=== PATIENT | female | born 1955 | race Caucasian/White ===

== ENCOUNTER 2022-03-18 11:57 | Inpatient (IN) ==
[2022-03-18] MEDS ORDERED: Ipratropium/Albuterol Neb 3 ML IH ONE (12:16)
[2022-03-18 12:19] LABS: Basophils % 0.3 %; Eosinophils % 0.2 %; Hematocrit 49.3 % (35.3-44.9); Hemoglobin 16.9 g/dL (11.5-15.4); Immature Granulocytes % 0.2 % (0-4); Lymphocytes # 1.9 K/mcL (0.6-4.6); Lymphocytes % 13.4 %; Mean Corpuscular HGB Conc 34.3 g/dL (31.6-35.5); Mean Corpuscular Hemoglobin 30.9 pg (28.0-33.3); Mean Corpuscular Volume 90.1 fL (83.0-100.0); Mean Platelet Volume 9.9 fL (9.4-12.4); Monocytes # 1.1 K/mcL (0.0-1.3); Monocytes % 8.1 %; Platelet Count 220 K/mcL (140-400); Red Blood Count 5.47 M/mcL (3.82-4.97); Red Cell Distribution Width 13.2 % (11.5-14.5); Segmented Neutrophils % 77.8 %; White Blood Count 14.1 K/mcL (4.3-11.1)
[2022-03-18 12:41] LABS: Alanine Aminotransferase 12 Units/L (7-52); Albumin 4.1 g/dL (3.5-5.7); Albumin/Globulin Ratio 1.1 (1.1-2.2); Alkaline Phosphatase 105 Units/L (34-104); Aspartate Amino Transferase 20 Units/L (13-39); BUN/Creatinine Ratio 13 (6-26); Bilirubin,Total 0.8 mg/dL (0.3-1.0); Blood Urea Nitrogen 9 mg/dL (8-23); Calcium 9.8 mg/dL (8.6-10.3); Carbon Dioxide 25 mEq/L (23-29); Chloride 109 mEq/L (98-107); Creatine Kinase 229 Units/L (30-223); Globulin 3.7 g/dL (2.4-3.5); Glucose 112 mg/dL (70-105); Osmolality,Calculated 299 (280-300); Potassium 3.9 mEq/L (3.5-5.1); Sodium 145 mEq/L (136-145); Total Protein 7.8 g/dL (6.4-8.9); Troponin I < 0.03 ng/mL (< 0.04); eGFR For African Americans > 60 (> 60); eGFR For Non-African Americans > 60 (> 60)
[2022-03-18] MEDS ORDERED: Ringers Solution, Lactated 1,000 ML IVC SCH (16:45)
[2022-03-18] MEDS ORDERED: Perflutren Lipid Microsphere 1.3 ML in 0.9 % Sodium Chloride 8.7 ML IVP PRN (18:18)
[2022-03-18] MEDS ORDERED: Acetaminophen 325 MG TABLET PO PRN (18:19)
[2022-03-18] MEDS ORDERED: Naloxone 0.4 MG/ML INJ IVP PRN (18:25)
[2022-03-18] MEDS ORDERED: Ondansetron 4 MG/2 ML VIAL IVP PRN (18:25)
[2022-03-18] MEDS ORDERED: Nicotine 14 MG PATCH.TD24 TD PRN (18:42)
[2022-03-18] MEDS: *HR* HYDROcodone/Acet 5/325 mg TABLET PO PRN (19:05)
[2022-03-18] MEDS: Budesonide/Formoterol 160/4.5 1 PUFF INH IH SCH (19:59)
[2022-03-18] MEDS ORDERED: Ipratropium/Albuterol Neb 3 ML IH SCH (20:00)
[2022-03-18] MEDS: Ipratropium/Albuterol Neb 3 ML IH PRN (20:02)
[2022-03-19] MEDS ORDERED: *HR* Metoprolol 5 MG/5 ML VIAL IVP ONE (02:36)
[2022-03-19] MEDS: *HR* HYDROcodone/Acet 5/325 mg TABLET PO PRN (03:11)
[2022-03-19 03:37] LABS: Basophils % 0.2 %; Eosinophils # 0.1 K/mcL (0.0-0.6); Eosinophils % 0.5 %; Hematocrit 43.3 % (35.3-44.9); Immature Granulocytes % 0.3 % (0-4); Lymphocytes # 2.2 K/mcL (0.6-4.6); Lymphocytes % 21.5 %; Mean Corpuscular HGB Conc 33.5 g/dL (31.6-35.5); Mean Corpuscular Hemoglobin 30.9 pg (28.0-33.3); Mean Corpuscular Volume 92.1 fL (83.0-100.0); Monocytes # 0.9 K/mcL (0.0-1.3); Monocytes % 8.8 %; Neutrophils # 6.9 K/mcL (1.6-8.9); Platelet Count 190 K/mcL (140-400); Red Cell Distribution Width 13.2 % (11.5-14.5); Segmented Neutrophils % 68.7 %; White Blood Count 10.1 K/mcL (4.3-11.1)
[2022-03-19 03:48] LABS: Hemoglobin 14.5 g/dL (11.5-15.4)
[2022-03-19 03:49] LABS: Prealbumin 6.9 mg/dL (17.0-34.0)
[2022-03-19 03:58] LABS: % Iron Saturation 11 % (15-50); BUN/Creatinine Ratio 13 (6-26); Blood Urea Nitrogen 8 mg/dL (8-23); Calcium 9.2 mg/dL (8.6-10.3); Carbon Dioxide 22 mEq/L (23-29); Chloride 108 mEq/L (98-107); Glucose 88 mg/dL (70-105); Iron 22 mcg/dL (50-170); Osmolality,Calculated 296 (280-300); Potassium 3.2 mEq/L (3.5-5.1); Sodium 144 mEq/L (136-145); Transferrin 148 mg/dL (203-362); eGFR For African Americans > 60 (> 60); eGFR For Non-African Americans > 60 (> 60)
[2022-03-19 04:03] LABS: Thyroid Stimulating Hormone 1.119 mcIU/mL (0.340-5.600)
[2022-03-19] MEDS ORDERED: Tiotropium 10 INH DOSE IH ONE (07:29)
[2022-03-19] MEDS: Budesonide/Formoterol 160/4.5 1 PUFF INH IH SCH ×2 (07:33→19:51)
[2022-03-19] MEDS: Tiotropium 10 INH DOSE IH SCH (07:36)
[2022-03-19] MEDS: Cholecalciferol (D-3) 1,000 UNIT (25MCG) TABLET PO SCH (09:23)
[2022-03-19] MEDS: Multivit/Ca/Min/Fe/FA 1 TAB TABLET PO SCH (09:24)
[2022-03-19] MEDS: Gabapentin 300 MG CAPSULE PO SCH ×3 (09:24→23:22)
[2022-03-19] MEDS: Thiamine (B-1) 200 MG/2 ML VIAL IM SCH (09:25)
[2022-03-19] MEDS ORDERED: Iopamidol - 370 500 ML MLS IVP ONE (10:00)
[2022-03-19] MEDS ORDERED: Gadolinium Contrast Agent (WT Based) IV PRN (10:17)
[2022-03-19] MEDS: cloNIDine HCL 0.1 MG TABLET PO SCH (10:45)
[2022-03-19] MEDS: Pantoprazole 40 MG VIAL IVP SCH (10:53)
[2022-03-19] MEDS ORDERED: GADOBUTROL 30 MMOL/30 ML VIAL IVP ONE (11:23)
[2022-03-19 14:54] LABS: INR 1.2; Prothrombin Time 13.9 Seconds (9.4-12.1)
[2022-03-20] MEDS: *HR* HYDROcodone/Acet 5/325 mg TABLET PO PRN (00:01)
[2022-03-20 05:37] LABS: BUN/Creatinine Ratio 16 (6-26); Blood Urea Nitrogen 10 mg/dL (8-23); Calcium 9.3 mg/dL (8.6-10.3); Carbon Dioxide 24 mEq/L (23-29); Chloride 113 mEq/L (98-107); Glucose 139 mg/dL (70-105); Osmolality,Calculated 303 (280-300); Potassium 4.1 mEq/L (3.5-5.1); Sodium 146 mEq/L (136-145); eGFR For African Americans > 60 (> 60); eGFR For Non-African Americans > 60 (> 60)
[2022-03-20] MEDS ORDERED: Lidocaine HCL 4 ML Topical Solution (Laryng-O-Jet Kit Sterile Pak) TP ONE (08:44)
[2022-03-20] MEDS ORDERED: Ondansetron 4 MG/2 ML VIAL ONE (08:44)
[2022-03-20] MEDS ORDERED: Lidocaine -MPF 2% 2 ML VIAL ONE (08:44)
[2022-03-20] MEDS ORDERED: *HR* Rocuronium Bromide 50 MG/5 ML VIAL ONE (08:44)
[2022-03-20] MEDS ORDERED: *HR* Propofol 200 MG/20 ML VIAL IVP ONE (08:44)
[2022-03-20] MEDS ORDERED: *HR* Succinylcholine 200 MG/10 ML VIAL IVP ONE (08:44)
[2022-03-20] MEDS ORDERED: *HR* FentaNYL (PF) 100 MCG/2 ML VIAL ONE (08:49)
[2022-03-20] MEDS ORDERED: EPHEDrine 50 MG/ML VIAL ONE (09:49)
[2022-03-20] MEDS: Tiotropium 10 INH DOSE IH SCH (10:08)
[2022-03-20] MEDS ORDERED: *HR* EPINEPHrine 1 MG/10 ML SYRINGE INTRATRACH PRN (10:08)
[2022-03-20] MEDS: Budesonide/Formoterol 160/4.5 1 PUFF INH IH SCH ×2 (10:08→22:15)
[2022-03-20] MEDS ORDERED: Acetaminophen IV 1,000 MG/100 ML BAG IVPB PRN (10:30)
[2022-03-20] MEDS ORDERED: *HR* Meperidine 25 MG/ML SYRINGE IVP PRN (10:30)
[2022-03-20] MEDS ORDERED: *HR* Labetalol 20 MG/4 ML SYRINGE IVP PRN (10:30)
[2022-03-20] MEDS ORDERED: Naloxone 0.4 MG/ML INJ IVP PRN (10:30)
[2022-03-20] MEDS ORDERED: Albuterol 2.5 MG/3 ML NEBULIZER IH PRN (10:30)
[2022-03-20] MEDS ORDERED: Ondansetron 4 MG/2 ML VIAL IVP PRN (10:30)
[2022-03-20] MEDS ORDERED: Ipratropium Neb 0.5 MG NEBULIZER IH PRN (10:30)
[2022-03-20] MEDS ORDERED: Racepinephrine Neb 0.5 ML VIAL IH PRN (10:30)
[2022-03-20] MEDS ORDERED: *HR* FentaNYL (PF) 100 MCG/2 ML VIAL IVP PRN (10:30)
[2022-03-20] MEDS ORDERED: flumazeniL 0.5 MG/5 ML VIAL IVP PRN (10:30)
[2022-03-20] MEDS ORDERED: Albuterol 2.5 MG/3 ML NEBULIZER ONE (10:38)
[2022-03-20] MEDS: Gabapentin 300 MG CAPSULE PO SCH ×3 (12:21→23:50)
[2022-03-20] MEDS: cloNIDine HCL 0.1 MG TABLET PO SCH (12:21)
[2022-03-20] MEDS: Multivit/Ca/Min/Fe/FA 1 TAB TABLET PO SCH (12:21)
[2022-03-20] MEDS: Cholecalciferol (D-3) 1,000 UNIT (25MCG) TABLET PO SCH (12:22)
[2022-03-20] MEDS: Pantoprazole 40 MG VIAL IVP SCH (12:22)
[2022-03-20] MEDS: Thiamine (B-1) 200 MG/2 ML VIAL IM SCH (12:59)
[2022-03-21] MEDS ORDERED: *HR* Metoprolol 5 MG/5 ML VIAL IVP ONE (04:30)
[2022-03-21 06:29] LABS: BUN/Creatinine Ratio 14 (6-26); Blood Urea Nitrogen 9 mg/dL (8-23); Calcium 9.3 mg/dL (8.6-10.3); Carbon Dioxide 28 mEq/L (23-29); Chloride 110 mEq/L (98-107); Glucose 143 mg/dL (70-105); Osmolality,Calculated 303 (280-300); Potassium 3.7 mEq/L (3.5-5.1); Sodium 146 mEq/L (136-145); eGFR For African Americans > 60 (> 60); eGFR For Non-African Americans > 60 (> 60)
[2022-03-21] MEDS: Tiotropium 10 INH DOSE IH SCH (07:14)
[2022-03-21] MEDS: Budesonide/Formoterol 160/4.5 1 PUFF INH IH SCH ×2 (07:14→21:49)
[2022-03-21] MEDS: Pantoprazole 40 MG VIAL IVP SCH (11:01)
[2022-03-21] MEDS: Gabapentin 300 MG CAPSULE PO SCH ×3 (11:01→22:56)
[2022-03-21] MEDS: cloNIDine HCL 0.1 MG TABLET PO SCH (11:01)
[2022-03-21] MEDS: Multivit/Ca/Min/Fe/FA 1 TAB TABLET PO SCH (11:02)
[2022-03-21] MEDS: Cholecalciferol (D-3) 1,000 UNIT (25MCG) TABLET PO SCH (11:02)
[2022-03-21] MEDS: Thiamine (B-1) 100 MG TABLET PO SCH (11:02)
[2022-03-21 23:17] LABS: Bilirubin,Urine Negative (Negative); Blood,Urine Negative (Negative); Clarity,Urine Clear (Clear); Color,Urine Light-Yellow (Yellow); Glucose,Urine (UA) Normal (Normal); Ketones,Urine Negative (Negative); Leukocyte Esterase,Urine Negative (Negative); Nitrite,Urine Negative (Negative); PH,Urine 6.5 pH Units (5.0-8.0); Protein,Urine Negative (Neg-Trace); Specific Gravity,Urine 1.007 (1.010-1.025); Urobilinogen,Urine Normal (Normal)
[2022-03-22] MEDS: Tiotropium 10 INH DOSE IH SCH (07:58)
[2022-03-22] MEDS: Budesonide/Formoterol 160/4.5 1 PUFF INH IH SCH ×2 (07:58→21:43)
[2022-03-22] MEDS: Pantoprazole 40 MG VIAL IVP SCH (09:30)
[2022-03-22] MEDS: cloNIDine HCL 0.1 MG TABLET PO SCH (09:40)
[2022-03-22] MEDS: Gabapentin 300 MG CAPSULE PO SCH ×2 (09:40→15:42)
[2022-03-22] MEDS: Multivit/Ca/Min/Fe/FA 1 TAB TABLET PO SCH (09:41)
[2022-03-22] MEDS: Thiamine (B-1) 100 MG TABLET PO SCH (09:41)
[2022-03-22] MEDS: Cholecalciferol (D-3) 1,000 UNIT (25MCG) TABLET PO SCH (09:41)
[2022-03-22] MEDS: Ipratropium/Albuterol Neb 3 ML IH PRN (20:25)
[2022-03-23] MEDS: Gabapentin 300 MG CAPSULE PO SCH ×3 (00:09→16:28)
[2022-03-23 07:04] LABS: Basophils % 0.3 %; Eosinophils % 0.1 %; Mean Corpuscular Hemoglobin 30.3 pg (28.0-33.3); Monocytes % 5.1 %
[2022-03-23 07:06] LABS: Hematocrit 41.8 % (35.3-44.9); Hemoglobin 13.6 g/dL (11.5-15.4); Immature Granulocytes % 1.6 % (0-4); Immature Platelets 10.2 % (1.1-6.1); Lymphocytes # 1.3 K/mcL (0.6-4.6); Lymphocytes % 11.8 %; Mean Corpuscular HGB Conc 32.5 g/dL (31.6-35.5); Mean Corpuscular Volume 93.1 fL (83.0-100.0); Mean Platelet Volume 12.2 fL (9.4-12.4); Monocytes # 0.6 K/mcL (0.0-1.3); Neutrophils # 9.2 K/mcL (1.6-8.9); Platelet Count 176 K/mcL (140-400); Red Blood Count 4.49 M/mcL (3.82-4.97); Red Cell Distribution Width 13.4 % (11.5-14.5); Segmented Neutrophils % 81.1 %; White Blood Count 11.3 K/mcL (4.3-11.1)
[2022-03-23 07:56] LABS: Platelet Estimate Normal (Normal)
[2022-03-23 08:02] LABS: BUN/Creatinine Ratio 25 (6-26); Blood Urea Nitrogen 16 mg/dL (8-23); Carbon Dioxide 26 mEq/L (23-29); Chloride 108 mEq/L (98-107); Glucose 123 mg/dL (70-105); Osmolality,Calculated 301 (280-300); Potassium 3.8 mEq/L (3.5-5.1); Sodium 144 mEq/L (136-145); eGFR For African Americans > 60 (> 60); eGFR For Non-African Americans > 60 (> 60)
[2022-03-23] MEDS: Pantoprazole 40 MG VIAL IVP SCH (09:16)
[2022-03-23] MEDS: Thiamine (B-1) 100 MG TABLET PO SCH (09:17)
[2022-03-23] MEDS: Multivit/Ca/Min/Fe/FA 1 TAB TABLET PO SCH (09:17)
[2022-03-23] MEDS: Cholecalciferol (D-3) 1,000 UNIT (25MCG) TABLET PO SCH (09:17)
[2022-03-23] MEDS: cloNIDine HCL 0.1 MG TABLET PO SCH (09:30)
[2022-03-23] MEDS: Tiotropium 10 INH DOSE IH SCH (10:15)
[2022-03-23] MEDS: Budesonide/Formoterol 160/4.5 1 PUFF INH IH SCH ×2 (10:15→19:50)
[2022-03-23] MEDS: Ciprofloxacin HCL Soln 5 ML BOTTLE RIGHT EYE SCH ×3 (11:10→19:47)
[2022-03-23] MEDS: Ciprofloxacin HCL Soln 5 ML BOTTLE LEFT EYE SCH ×3 (11:10→19:46)
[2022-03-23] MEDS: 0.9 % Sodium Chloride 1,000 ML IVC SCH (13:00)
[2022-03-23] MEDS: Sennosides/Docusate Sodium TABLET PO SCH (21:53)
[2022-03-23] MEDS: *HR* HYDROcodone/Acet 10/325 mg TABLET PO PRN (21:53)
[2022-03-24] MEDS: Ciprofloxacin HCL Soln 5 ML BOTTLE LEFT EYE SCH ×7 (00:03→23:46)
[2022-03-24] MEDS: Ciprofloxacin HCL Soln 5 ML BOTTLE RIGHT EYE SCH ×7 (00:03→23:46)
[2022-03-24] MEDS: Gabapentin 300 MG CAPSULE PO SCH ×4 (00:03→23:46)
[2022-03-24] MEDS: 0.9 % Sodium Chloride 1,000 ML IVC SCH ×2 (01:57→09:59)
[2022-03-24] MEDS: Tiotropium 10 INH DOSE IH SCH (07:59)
[2022-03-24] MEDS: Budesonide/Formoterol 160/4.5 1 PUFF INH IH SCH ×2 (08:00→20:11)
[2022-03-24] MEDS: Pantoprazole 40 MG VIAL IVP SCH (08:56)
[2022-03-24] MEDS: cloNIDine HCL 0.1 MG TABLET PO SCH (08:56)
[2022-03-24] MEDS: Multivit/Ca/Min/Fe/FA 1 TAB TABLET PO SCH (08:57)
[2022-03-24] MEDS: Thiamine (B-1) 100 MG TABLET PO SCH (08:57)
[2022-03-24] MEDS: Cholecalciferol (D-3) 1,000 UNIT (25MCG) TABLET PO SCH (08:57)
[2022-03-24] MEDS: Sennosides/Docusate Sodium TABLET PO SCH ×2 (09:01→21:07)
[2022-03-24] MEDS: Ipratropium/Albuterol Neb 3 ML IH SCH ×2 (15:44→20:11)
[2022-03-25] MEDS: Ipratropium/Albuterol Neb 3 ML IH SCH ×3 (00:15→07:59)
[2022-03-25] MEDS: 0.9 % Sodium Chloride 1,000 ML IVC SCH (00:24)
[2022-03-25] MEDS: Ciprofloxacin HCL Soln 5 ML BOTTLE LEFT EYE SCH ×6 (03:53→23:37)
[2022-03-25] MEDS: Ciprofloxacin HCL Soln 5 ML BOTTLE RIGHT EYE SCH ×6 (03:53→23:38)
[2022-03-25] MEDS: Budesonide/Formoterol 160/4.5 1 PUFF INH IH SCH ×2 (07:59→22:40)
[2022-03-25] MEDS: Tiotropium 10 INH DOSE IH SCH (08:01)
[2022-03-25] MEDS: Gabapentin 300 MG CAPSULE PO SCH ×3 (08:54→23:38)
[2022-03-25] MEDS: cloNIDine HCL 0.1 MG TABLET PO SCH (08:54)
[2022-03-25] MEDS ORDERED: 0.9 % Sodium Chloride 1,000 ML IVC ONE (09:10)
[2022-03-25] MEDS: Thiamine (B-1) 100 MG TABLET PO SCH (09:17)
[2022-03-25] MEDS: Multivit/Ca/Min/Fe/FA 1 TAB TABLET PO SCH (09:17)
[2022-03-25] MEDS: Cholecalciferol (D-3) 1,000 UNIT (25MCG) TABLET PO SCH (09:17)
[2022-03-25] MEDS: Sennosides/Docusate Sodium TABLET PO SCH ×2 (09:18→20:38)
[2022-03-25] MEDS: Pantoprazole 40 MG VIAL IVP SCH (09:19)
[2022-03-25] MEDS: Levalbuterol Neb 1.25 MG/3 ML IH SCH ×3 (11:13→22:22)
[2022-03-25] MEDS ORDERED: *HR* LORazepam 0.5 MG TABLET PO PRN (12:03)
[2022-03-25] MEDS: dexAMETHasone 4 MG TABLET PO SCH ×2 (14:06→20:39)
[2022-03-25] MEDS: polyethylene glycoL 3350 17 GM POWD.PACK PO SCH (16:40)
[2022-03-26] MEDS: Levalbuterol Neb 1.25 MG/3 ML IH SCH ×4 (04:12→20:25)
[2022-03-26] MEDS: Ciprofloxacin HCL Soln 5 ML BOTTLE LEFT EYE SCH ×5 (06:54→21:30)
[2022-03-26] MEDS: Ciprofloxacin HCL Soln 5 ML BOTTLE RIGHT EYE SCH ×5 (06:54→21:29)
[2022-03-26] MEDS: Thiamine (B-1) 100 MG TABLET PO SCH (08:55)
[2022-03-26] MEDS: Cholecalciferol (D-3) 1,000 UNIT (25MCG) TABLET PO SCH (08:55)
[2022-03-26] MEDS: Pantoprazole 40 MG VIAL IVP SCH (08:55)
[2022-03-26] MEDS: Gabapentin 300 MG CAPSULE PO SCH ×2 (08:55→16:43)
[2022-03-26] MEDS: Sennosides/Docusate Sodium TABLET PO SCH ×2 (08:55→21:31)
[2022-03-26] MEDS: Multivit/Ca/Min/Fe/FA 1 TAB TABLET PO SCH (08:55)
[2022-03-26] MEDS: dexAMETHasone 4 MG TABLET PO SCH ×3 (08:56→21:31)
[2022-03-26] MEDS: polyethylene glycoL 3350 17 GM POWD.PACK PO SCH (09:09)
[2022-03-26] MEDS: Budesonide/Formoterol 160/4.5 1 PUFF INH IH SCH ×2 (09:38→20:27)
[2022-03-26] MEDS: Tiotropium 10 INH DOSE IH SCH (09:39)
[2022-03-26] MEDS: *HR* HYDROcodone/Acet 5/325 mg TABLET PO PRN (21:31)
[2022-03-26] MEDS: Melatonin 3 MG TABLET PO PRN (21:32)
[2022-03-27] MEDS: Gabapentin 300 MG CAPSULE PO SCH ×4 (01:06→23:50)
[2022-03-27] MEDS: Ciprofloxacin HCL Soln 5 ML BOTTLE RIGHT EYE SCH ×7 (01:09→23:50)
[2022-03-27] MEDS: Ciprofloxacin HCL Soln 5 ML BOTTLE LEFT EYE SCH ×7 (01:10→23:50)
[2022-03-27 02:26] LABS: CK-BB (CK isoenzymes) 0 % (0-0); CK-MB (CK isoenzymes) 0 % (0-4); CK-MM (CK-isoenzymes) 100 % (96-100)
[2022-03-27] MEDS: Levalbuterol Neb 1.25 MG/3 ML IH SCH ×4 (02:51→21:17)
[2022-03-27] MEDS: polyethylene glycoL 3350 17 GM POWD.PACK PO SCH (07:01)
[2022-03-27] MEDS: dexAMETHasone 4 MG TABLET PO SCH ×3 (07:33→20:26)
[2022-03-27] MEDS: Multivit/Ca/Min/Fe/FA 1 TAB TABLET PO SCH (07:33)
[2022-03-27] MEDS: Sennosides/Docusate Sodium TABLET PO SCH ×2 (07:33→20:26)
[2022-03-27] MEDS: Pantoprazole 40 MG VIAL IVP SCH (07:33)
[2022-03-27] MEDS: Thiamine (B-1) 100 MG TABLET PO SCH (07:33)
[2022-03-27] MEDS: Cholecalciferol (D-3) 1,000 UNIT (25MCG) TABLET PO SCH (07:33)
[2022-03-27 08:42] LABS: Basophils # 0.1 K/mcL (0.0-0.2); Basophils % 0.5 %; Hematocrit 42.2 % (35.3-44.9); Hemoglobin 13.7 g/dL (11.5-15.4); Immature Granulocytes % 4.6 % (0-4); Lymphocytes # 1.9 K/mcL (0.6-4.6); Lymphocytes % 12.3 %; Mean Corpuscular HGB Conc 32.5 g/dL (31.6-35.5); Mean Corpuscular Hemoglobin 30.6 pg (28.0-33.3); Mean Corpuscular Volume 94.4 fL (83.0-100.0); Mean Platelet Volume 9.9 fL (9.4-12.4); Monocytes # 1.2 K/mcL (0.0-1.3); Monocytes % 7.7 %; Neutrophils # 11.4 K/mcL (1.6-8.9); Platelet Count 258 K/mcL (140-400); Red Blood Count 4.47 M/mcL (3.82-4.97); Red Cell Distribution Width 13.7 % (11.5-14.5); Segmented Neutrophils % 74.9 %; White Blood Count 15.2 K/mcL (4.3-11.1)
[2022-03-27 08:56] LABS: BUN/Creatinine Ratio 22 (6-26); Blood Urea Nitrogen 16 mg/dL (8-23); Calcium 8.6 mg/dL (8.6-10.3); Carbon Dioxide 35 mEq/L (23-29); Chloride 103 mEq/L (98-107); Glucose 110 mg/dL (70-105); Osmolality,Calculated 298 (280-300); Sodium 143 mEq/L (136-145); eGFR For African Americans > 60 (> 60); eGFR For Non-African Americans > 60 (> 60)
[2022-03-27] MEDS: Budesonide/Formoterol 160/4.5 1 PUFF INH IH SCH ×2 (10:14→21:18)
[2022-03-27] MEDS: Tiotropium 10 INH DOSE IH SCH (10:14)
[2022-03-27 10:17] LABS: CK Total (Ck Isoenzymes) 90 U/L (26-192)
[2022-03-27] MEDS: *HR* HYDROcodone/Acet 10/325 mg TABLET PO PRN (20:25)
[2022-03-27] MEDS: Melatonin 3 MG TABLET PO PRN (20:26)
[2022-03-28] MEDS: Levalbuterol Neb 1.25 MG/3 ML IH SCH ×2 (03:33→11:29)
[2022-03-28] MEDS: Ciprofloxacin HCL Soln 5 ML BOTTLE RIGHT EYE SCH ×3 (03:56→11:11)
[2022-03-28] MEDS: Ciprofloxacin HCL Soln 5 ML BOTTLE LEFT EYE SCH ×3 (03:56→11:11)
[2022-03-28] MEDS: Gabapentin 300 MG CAPSULE PO SCH (08:34)
[2022-03-28] MEDS: Cholecalciferol (D-3) 1,000 UNIT (25MCG) TABLET PO SCH (08:34)
[2022-03-28] MEDS: dexAMETHasone 4 MG TABLET PO SCH (08:34)
[2022-03-28] MEDS: Sennosides/Docusate Sodium TABLET PO SCH (08:34)
[2022-03-28] MEDS: Thiamine (B-1) 100 MG TABLET PO SCH (08:34)
[2022-03-28] MEDS: Multivit/Ca/Min/Fe/FA 1 TAB TABLET PO SCH (08:34)
[2022-03-28] MEDS: Pantoprazole 40 MG VIAL IVP SCH (08:35)
[2022-03-28] MEDS: polyethylene glycoL 3350 17 GM POWD.PACK PO SCH (08:35)
[2022-03-28 10:16] VITALS: BP 151/65; PULSE 60; TEMP 97.6; O2SAT 93
[2022-03-28] MEDS: Tiotropium 10 INH DOSE IH SCH (11:29)
[2022-03-28] MEDS: Budesonide/Formoterol 160/4.5 1 PUFF INH IH SCH (11:29)
[2022-03-28 12:20] LABS: Influenza A PCR Negative (Negative); Influenza B PCR Negative (Negative); Resp. Syncytial Virus PCR Negative (Negative)
[2022-03-28 12:24] LABS: SARS-CoV-2 by PCR (In House) Negative (Negative)
== END 2022-03-28 14:42 | DRG 136 ==
LOC: 3BNU 11:57 → EMEROOARM 11:57 → 3BNU 17:02 → SUATTDRO 03-20 12:57
PROVIDERS: ADMIT Student in an Organized Health Care Education/Training Program; ATTEND Registered Nurse